=== PATIENT | male | born 1985 | race Two or more races ===

== ENCOUNTER 2017-10-13 15:22 | Emergency (ER) | payer MEDICAID, OTHER ==
[2017-10-13 15:31] VITALS: O2SAT 98
--- NOTE | 2017-10-13 16:59 | C.PDOC ---
History Of Present Illness 32 y/o male comes in for evaluation of left lower rib cage pain for 1 week. Denies associated fall or injury. States he initially noticed a bruise at the site, which is now fading. Pain is localized and worse with movement. Otherwise denies fever, chills, SOB, dyspnea, CP, wheezing, abdominal pain, nausea, vomiting, incontinence of bowel/bladder, saddle anesthesia, or lower extremity weakness. Patient took Motrin at home with temporary relief. Ambulate to Ed for evaluation, not in any apparent distress. Time Seen by Provider: 10/13/17 16:12 Chief Complaint (Nursing): Back Pain History Per: Patient History/Exam Limitations: no limitations Onset/Duration Of Symptoms: Days Current Symptoms Are (Timing): Still Present Past Medical History Reviewed: Historical Data, Nursing Documentation, Vital Signs Vital Signs: Last Vital Signs Temp 98.2 F 10/13/17 15:27 Pulse 64 10/13/17 15:27 Resp 15 10/13/17 15:27 BP 125/81 10/13/17 15:27 Pulse Ox 98 10/13/17 17:28 - Medical History PMH: No Chronic Diseases Surgical History: No Surg Hx - [facility] Procedures TETANUS TOXOID ADMINIST (03/25/14) Family History: States: No Known Family Hx - Social History Hx Tobacco Use: Yes Hx Alcohol Use: No Hx Substance Use: Yes - Immunization History Hx Tetanus Toxoid Vaccination: No Hx Influenza Vaccination: No Hx Pneumococcal Vaccination: No Review Of Systems Except As Marked, All Systems Reviewed And Found Negative. Respiratory: Negative for: Shortness of Breath Gastrointestinal: Negative for: Nausea, Vomiting, Abdominal Pain Genitourinary: Negative for: Dysuria, Frequency, Incontinence Musculoskeletal: Positive for: Other (Posterior rib pain) Neurological: Negative for: Weakness, Numbness Physical Exam - Physical Exam Appears: Well, Non-toxic, No Acute Distress Skin: Normal Color, Warm Head: Normacephalic Eye(s): bilateral: PERRL Oral Mucosa: Moist Neck: Trachea Midline, No Midline Cervical Tenderness, No Paracervical Tenderness, No Step Off Deformity, Supple Chest: Symmetrical, No Deformity, Tenderness (mild over Left lower ribcage overlying 10-12 ribs. No palpable deformity, no edema.), Ecchymosis (trace ecchymoses left lateral ribcage over 10 rib ), No Subcutaneous Emphysema Cardiovascular: Rhythm Regular, No Murmur, No JVD Respiratory: No Decreased Breath Sounds, No Accessory Muscle Use, No Rales, No Rhonchi, No Stridor, No Wheezing Gastrointestinal/Abdominal: Soft, No Tenderness Back: No Vertebral Tenderness, No Paraspinal Tenderness Extremity: Normal ROM, No Tenderness, No Deformity, No Swelling Neurological/Psych: Oriented x3, Normal Speech, Normal Motor, Normal Sensation, Normal Reflexes ED Course And Treatment O2 Sat by Pulse Oximetry: 98 (RA) Pulse Ox Interpretation: Normal - Radiology CXR: Interpreted by Me, Viewed By Me CXR Interpretation: No: Pnemothorax - Other Rad Ribs, left w/CXR X-Ray: Interpreted by Me, Viewed By Me Interpretation: (+) 8-9 ribs fx Progress Note: Patient given 600 mg Motrin PO. Ordered x-ray of left ribs/chest and urine. On re-eval, pt is afebrile, hemodynamicaly stable. Non-toxic. PulsEOx 98% RA. neck: Supple, (-) midline tenderness. Lungs: CTA B/L, BS equal B/L. CVS: (+)S1S2, reg. Abd: benign. Neurologicaly intact. UA results review- normal. Ribs w/CXR (+) 8th rib fx, no PTX. Pt has clinical finidngs c/ w Left rib fx, uncomplicated. Pt advised. re.f to f/u with PMD in 2-3 days for re-eval. return if any new changes. Disposition Counseled Patient/Family Regarding: Studies Performed, Diagnosis, Need For Followup, Rx Given - Disposition Referrals: [facility] [Outside] Disposition: HOME/ ROUTINE Disposition Time: 17:28 Condition: STABLE Additional Instructions: LIght duty Take pain medication as prescribed Follow up with PMD in 2-3 days for re-evaluation. return to ED if any worsening or new changes. 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 - Scribe Statement The provider has reviewed the documentation as recorded by the Scribe (Ana Coleman) All medical record entries made by the Scribe were at my direction and personally dictated by me. I have reviewed the chart and agree that the record accurately reflects my personal performance of the history, physical exam, medical decision making, and the department course for this patient. I have also personally directed, reviewed, and agree with the discharge instructions and disposition.
[2017-10-13 17:18] LABS: URINE BACTERIA RARE (<OCC); URINE BILIRUBIN NEGATIVE (NEGATIVE); URINE BLOOD NEGATIVE (NEGATIVE); URINE CLARITY Clear (Clear); URINE COLOR Yellow (YELLOW); URINE GLUCOSE (UA) NORMAL (Normal); URINE LEUKOCYTE ESTERASE NEG Leu/uL (Negative); URINE PROTEIN NEGATIVE (NEGATIVE); URINE UROBILINOGEN NORMAL mg/dL (0.2-1.0)
[2017-10-13 17:56] VITALS: BP 129/89; PULSE 67; RESP 18; TEMP 98.7
--- NOTE | 2017-10-13 18:21 | RAD ---
PROCEDURE: Radiographs of the Chest and Left Ribs. HISTORY: injury COMPARISON: None availableAll. TECHNIQUE: Frontal radiograph of the chest and multiple oblique radiographs of the left ribs were obtained. FINDINGS: LEFT RIBS: Slightly displaced contiguous posterior lateral left 8th and 9th rib fractures. LUNGS: Clear. PLEURA: No pneumothorax or pleural fluid. CARDIOVASCULAR: Normal sized heart. No pulmonary vascular congestion. OTHER FINDINGS: None. IMPRESSION: Displaced left rib fractures without underlying pulmonary or pleural abnormality. Concordant results with the preliminary interpretation rendered by the emergency department physician procedure.
== END 2017-10-13 17:55 | disposition home or self-care (01) ==
LOC: C.ER 15:22
DX: S22.42XA Multiple fractures of ribs, left side, initial encounter for closed fracture (principal); X58.XXXA Exposure to other specified factors, initial encounter